=== PATIENT | male | born 1955 | race Hispanic/Latino ===

== ENCOUNTER 2018-10-12 14:16 | Observation (INO) | payer OTHER, MEDICARE ==
[~2018-10-12] VITALS: Ht 165.1 cm; Wt 95.7 kg
[~2018-10-12 14:16] MED LIST: ASPI-555 PO; BACL10TA PO; BIMA12.5OS OU; CLOP75TA14 PO; INSU100I21 SQ; LOSA25TA41 PO; METF-446 PO; METO-391 PO; NITR0.4T SL; PANT40TA25 PO; PIOG15TA66 PO; PRAV40TA3 PO
[2018-10-12 14:28] LABS: BASOPHILS % (AUTO) 0.5 % (0.0-5.0); EOSINOPHILS % (AUTO) 1.9 % (0.0-8.0); LYMPHOCYTES % (AUTO) 23.8 % (21.0-51.0); MEAN CORPUSCULAR HEMOGLOBIN 30.9 pg (27.0-33.0); MEAN CORPUSCULAR HGB CONC 33.4 g/dL (32.0-36.0); MEAN CORPUSCULAR VOLUME 92.4 fL (79-99); MONOCYTES % (AUTO) 10.6 % (3.0-13.0); NEUTROPHILS % (AUTO) 63.2 % (40.0-77.0); PLATELET COUNT (AUTO) 235 K/uL (130-400); RED BLOOD CELL COUNT(AUTO) 4.87 MIL/uL (4.50-6.20); RED CELL DISTRIBUTION WIDTH 13.6 % (11.0-15.5); WHITE BLOOD COUNT (AUTO) 7.9 K/uL (4.8-10.8)
[2018-10-12 14:42] LABS: INR 0.91 (0.85-1.15); PARTIAL THROMBOPLASTIN TIME 28.8 SEC (26.3-35.5); PROTHROMBIN TIME 9.6 SEC (9.6-11.6)
[2018-10-12 14:43] LABS: CREATININE 1.2 mg/dL (0.5-1.5); POTASSIUM 4.2 mmol/L (3.5-5.1)
[2018-10-12 14:54] LABS: ALBUMIN 3.2 g/dL (3.5-5.0); BILIRUBIN,TOTAL 0.4 mg/dL (0.2-1.0); TOTAL PROTEIN, SERUM 6.8 g/dL (6.0-8.3)
[2018-10-12 14:58] LABS: B-TYPE NATRIURETIC PEPTIDE 16 pg/mL (0-100)
[2018-10-12] MEDS ORDERED: ACETAMINOPHEN 325 MG TAB PO PRN ×2 (17:00)
[2018-10-12] MEDS ORDERED: ONDANSETRON HCL 4 MG/2 ML VIAL IV PRN (17:00)
[2018-10-12] MEDS ORDERED: MORPHINE SULFATE 2 MG/ML 1ML SYG IV PRN (17:00)
[2018-10-12] MEDS ORDERED: HYDRALAZINE HCL 20 MG/ML VIAL IV PRN (17:00)
[2018-10-12] MEDS ORDERED: DEXTROSE 50%-WATER 50 ML DISP.SYRIN IV PRN (18:45)
[2018-10-12] MEDS ORDERED: GLUCAGON 1MG KIT 1 MG ML IM PRN (18:45)
[2018-10-12 19:07] LABS: HEMOGLOBIN A1C 7.1 % (4.0-6.0)
[2018-10-12] MEDS: METOPROLOL TARTRATE 25 MG TAB PO SCH (21:00)
[2018-10-12] MEDS: ATORVASTATIN CALCIUM 40 MG TABLET PO SCH (21:00)
[2018-10-12] MEDS: FAMOTIDINE 20MG TAB 20 MG TAB PO SCH (21:00)
[2018-10-12] MEDS: INSULIN HUMULIN R 100 UNIT/ML 3ML SQ SCH (21:00)
[2018-10-12] MEDS ORDERED: FAMOTIDINE 20MG TAB 20 MG TAB ONE (21:17)
[2018-10-12] MEDS ORDERED: METOPROLOL TARTRATE 25 MG TAB ONE (21:18)
[2018-10-12] MEDS ORDERED: ATORVASTATIN CALCIUM 20 MG TABLET ONE (21:18)
[2018-10-13] VITALS (13 sets, daily range): BP systolic 101–144; BP diastolic 68–90
[2018-10-13 01:34] LABS: CREATINE KINASE, TOTAL 96 U/L (21-232); MYOGLOBIN 45 ng/mL (10-92); TROPONIN I < 0.04 ng/mL (0.00-0.06)
[2018-10-13] MEDS: INSULIN HUMULIN R 100 UNIT/ML 3ML SQ SCH ×6 (07:30→21:00)
[2018-10-13] MEDS ORDERED: NITROGLYCERIN 5 MG/ML 10 ML VIAL IV ONE (07:51)
[2018-10-13] MEDS ORDERED: HEPARIN SODIUM 1000UNIT/ML 10ML VIAL ONE (07:51)
[2018-10-13] MEDS ORDERED: LIDOCAINE HCL 2% 20ML ONE (07:52)
[2018-10-13] MEDS ORDERED: IOHEXOL 350 MG/ML 100ML INFUS..BTL IV ONE (07:52)
[2018-10-13] MEDS ORDERED: IOHEXOL-350 50ML VIAL IV ONE (07:52)
[2018-10-13] MEDS ORDERED: SODIUM BICARB 50MEQ 50ML VIAL ONE (08:02)
[2018-10-13] MEDS ORDERED: MEPERIDINE-PF 25 MG/ML SYG ONE (08:11)
[2018-10-13] MEDS ORDERED: MIDAZOLAM HCL 1 MG/ML 2ML VIAL ONE (08:11)
[2018-10-13] MEDS ORDERED: SODIUM CHLORIDE 0.9% 1000ML 1,000 ML IV SCH (08:55)
[2018-10-13] MEDS: ENOXAPARIN SODIUM 40 MG/0.4 ML SYRINGE SQ SCH (09:00)
[2018-10-13] MEDS: FAMOTIDINE 20MG TAB 20 MG TAB PO SCH ×2 (09:00→21:06)
[2018-10-13] MEDS ORDERED: DEXTROSE 50%-WATER 50 ML DISP.SYRIN IV PRN (09:00)
[2018-10-13] MEDS: METOPROLOL TARTRATE 25 MG TAB PO SCH ×2 (09:00→21:06)
[2018-10-13] MEDS ORDERED: ACETAMINOPHEN-CODEINE 300/30MG TAB PO PRN ×2 (09:00)
[2018-10-13] MEDS ORDERED: ASPIRIN 325 MG TABLET PO SCH (09:00)
[2018-10-13] MEDS ORDERED: GLUCAGON 1MG KIT 1 MG ML IM PRN (09:00)
--- NOTE | 2018-10-13 09:20 | NUR ---
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 PERSONAL BELONGINGS WITH CLOTHING AT BEDSIDE, NO FAMILY AT BEDSIDE UPON ARRIVAL.
--- NOTE | 2018-10-13 14:27 | NUR ---
NURSING: REPORT GIVEN TO YANI DICKERSON/ [id number].
--- NOTE | 2018-10-13 15:00 | NUR ---
ARRIVAL TO ROOM 201 PT IS AAOX4 DENIES CP DENIES SOB DENIES NV NO COMPLAINTS, RIGHT GROIN MYNX CLOSURE DRESSING CLEAN DRY AND INTACT NO OOZING NO HEMATOMA. BEDREST IS COMPLETED PRIOR TO COMING UP TO ROOM 201. FRIEND IS AT BEDSIDE, CALL LIGHT WITHIN REACH.
--- NOTE | 2018-10-13 15:50 | NUR ---
DR ADRIAN MADE AWARE OF PT ARRIVAL TO FLOOR
[2018-10-13] MEDS ORDERED: NITROGLYCERIN 0.4 MG SL TAB SL SCH (17:00)
--- NOTE | 2018-10-13 17:13 | NUR ---
VIKTORIA BORDEN AUDIT INTERN ROUNDED SAW PATIENT ORDERS RECEIVED
[2018-10-13] MEDS ORDERED: BACLOFEN 10 MG TABLET PO PRN (17:45)
[2018-10-13] MEDS ORDERED: PHARMACY COMMUNICATION MISC SCH (17:45)
[2018-10-13] MEDS ORDERED: SIMVASTATIN 20 MG TABLET PO SCH (21:00)
[2018-10-13] MEDS ORDERED: Bimatoprost (Lumigan 0.01% Ophth Soln) 1 DROP OU SCH (21:00)
[2018-10-13] MEDS ORDERED: CLOPIDOGREL BISULFATE 75 MG TAB PO SCH (21:00)
[2018-10-13] MEDS ORDERED: Metoprolol Succinate 50 MG PO SCH (21:00)
--- NOTE | 2018-10-13 21:00 | NUR ---
PT ASSESSMENT- NO DISTRESS NOTED. IN BED, VERIFIED RIGHT GROIN SITE. SOFT AND NON TENDER. ROOM AIR. STABLE. BM 10/13. ABLE TO AMBULATE.
--- NOTE | 2018-10-13 21:03 | NUR ---
D/C PLAN CM spoke to pt regarding d/c planning. states he is [place] and lives with dtr. States dtr works but has assistance when not working. Also states girlfriend can assist if needed. plan to home. No needs verbalized or identified. CM to f/u Addendum: 10/13/18 at 2104 by TEAGAN HENDRIX CM Amended: Links added.
[2018-10-13] MEDS: ATORVASTATIN CALCIUM 40 MG TABLET PO SCH (21:06)
[2018-10-13] MEDS: RANOLAZINE 500 MG TAB.SR.12H PO SCH (21:06)
[2018-10-14 03:54] LABS: BASOPHILS % (AUTO) 0.2 % (0.0-5.0); EOSINOPHILS % (AUTO) 2.2 % (0.0-8.0); HEMATOCRIT 45.4 % (42-54); LYMPHOCYTES % (AUTO) 20.9 % (21.0-51.0); MEAN CORPUSCULAR HEMOGLOBIN 31.1 pg (27.0-33.0); MEAN CORPUSCULAR HGB CONC 34.1 g/dL (32.0-36.0); MONOCYTES % (AUTO) 8.2 % (3.0-13.0); NEUTROPHILS % (AUTO) 68.5 % (40.0-77.0); NUCLEATED RED BLOOD CELLS 0.1 % (0.0-0.19); PLATELET COUNT (AUTO) 230 K/uL (130-400); RED BLOOD CELL COUNT(AUTO) 4.99 MIL/uL (4.50-6.20); RED CELL DISTRIBUTION WIDTH 13.8 % (11.0-15.5); WHITE BLOOD COUNT (AUTO) 9.7 K/uL (4.8-10.8)
[2018-10-14 04:08] LABS: CREATININE 1.1 mg/dL (0.5-1.5); POTASSIUM 4.1 mmol/L (3.5-5.1)
[2018-10-14 04:34] VITALS: BP 118/78
[2018-10-14] MEDS: INSULIN HUMULIN R 100 UNIT/ML 3ML SQ SCH (06:41)
[2018-10-14 07:00] VITALS: BP 137/86
[2018-10-14] MEDS ORDERED: INSULIN LISPRO 100 UNIT/ML 3ML SQ SCH (07:30)
--- NOTE | 2018-10-14 07:40 | NUR ---
ASSESSMENT ENCOUNTERED PT A&OX3, CALM COOPERATIVE AND DOES NOT APPEAR TO BE IN ANY DISTRESS NOR ANY NEURO DEFICITS PRESENT. PT DENIES PAIN, SOB, NAUSEA. RT GROIN SOFT NONTENDER WITH NO OOZING OR HEMATOMA PRESENT. DP/PT PULSES PALPABLE. PT IS AMBULATORY, GAIT STEADY AND STRONG WITH STAND BY ASSIST. CALL LIGHT WITHIN REACH, FAMILY AT BEDSIDE.
[2018-10-14] MEDS ORDERED: INSULIN GLARGINE 100 UNITS/ML 10 ML VIAL SQ SCH ×2 (08:00)
[2018-10-14] MEDS: RANOLAZINE 500 MG TAB.SR.12H PO SCH (08:52)
[2018-10-14] MEDS: METOPROLOL TARTRATE 25 MG TAB PO SCH (08:52)
[2018-10-14] MEDS: ENOXAPARIN SODIUM 40 MG/0.4 ML SYRINGE SQ SCH (08:53)
[2018-10-14] MEDS ORDERED: PANTOPRAZOLE SODIUM 40 MG TABLET.DR PO SCH (09:00)
[2018-10-14] MEDS ORDERED: LOSARTAN 50 MG TABLET PO SCH (09:00)
[2018-10-14] MEDS ORDERED: PIOGLITAZONE HCL 15 MG TAB PO SCH (09:00)
[2018-10-14] MEDS ORDERED: ASPIRIN 81MG TAB.CHEW PO SCH (09:00)
--- NOTE | 2018-10-14 09:45 | NUR ---
DR GOLDMAN AT BEDSIDE UPDATE GIVEN, ORDERS RECEIVED.
--- NOTE | 2018-10-14 10:30 | NUR ---
JUNG WILKS PA-C AT BEDSIDE UPDATE GIVEN, NO ORDERS RECEIVED.
[2018-10-14 11:00] VITALS: BP 121/87
[2018-10-14] MEDS ORDERED: ATOR40TA69 PO (11:12)
[2018-10-14] MEDS ORDERED: RANO500T2 PO (11:12)
--- NOTE | 2018-10-14 11:45 | NUR ---
DR ADRIAN AT BEDSIDE UPDATE GIVEN, ORDERS RECEIVED
--- NOTE | 2018-10-14 13:00 | NUR ---
DISCHARGE INSTRUCTIONS GIVEN, PIV REMOVED AND INTACT, DISCHARGED HOME TO FAMILY VEHICLE VIA WHEELCHAIR.
== END 2018-10-14 13:15 | disposition home or self-care (01) ==
LOC: EDH 14:16 → INTOOBSV 16:51 → EDHIP 16:51 → 2AH 10-13 14:27
PROVIDERS: ADMIT Internal Medicine; ATTEND Internal Medicine
DX: I25.110 Atherosclerotic heart disease of native coronary artery with unstable angina pectoris (principal); E11.9 Type 2 diabetes mellitus without complications; E78.5 Hyperlipidemia, unspecified; I10 Essential (primary) hypertension; Z98.41 Cataract extraction status, right eye; Z98.42 Cataract extraction status, left eye; Z79.899 Other long term (current) drug therapy; E66.9 Obesity, unspecified; Z86.73 Personal history of transient ischemic attack (TIA), and cerebral infarction without residual deficits; Z95.5 Presence of coronary angioplasty implant and graft; Z82.49 Family history of ischemic heart disease and other diseases of the circulatory system; Z79.01 Long term (current) use of anticoagulants
CPT/HCPCS: 36415 ×4; 71045 ×2; 80048 ×2; 80053; 81001; 82550 ×2; 82948 ×4; 83735; 83036; 83874 ×2; 83880; 84484 ×2; 85025 ×3; 85610 ×2; 85730 ×2; 93005 ×4; 93306; 93458; 93880; 94010; 96372 ×2; 99284; C1760; C1894; G0378 ×44; J1644; J1650; J1815; J2175; J2250; J3490 ×3; Q9965; Q9967 ×2; 99156; 99157

== ENCOUNTER → 2020-09-06 | Outpatient (CLI) | payer OTHER, MEDICARE ==
[~2020-09-06] MED LIST changes: -ASPI-555 PO; +ASPI-556 PO; +ATOR40TA69 PO; -PANT40TA25 PO; +PANT40TA54 PO; -PRAV40TA3 PO; +RANO500T2 PO
== END | disposition home or self-care (01) ==
LOC: RAH 11:58
PROVIDERS: ATTEND Internal Medicine Cardiovascular Disease
DX: R91.8 Other nonspecific abnormal finding of lung field (principal); M51.36 Other intervertebral disc degeneration, lumbar region; Z95.1 Presence of aortocoronary bypass graft
CPT/HCPCS: 71046

== ENCOUNTER → 2020-09-13 | Outpatient (CLI) | payer OTHER, MEDICARE | END | disposition home or self-care (01) | LOC: RAH 12:08 | PROVIDERS: ATTEND Internal Medicine Cardiovascular Disease | DX: I25.10 Atherosclerotic heart disease of native coronary artery without angina pectoris (principal); J44.9 Chronic obstructive pulmonary disease, unspecified | CPT/HCPCS: 71250 ==

== ENCOUNTER → 2021-06-19 | Outpatient (CLI) | payer OTHER, MEDICARE ==
[~2021-06-19] VITALS: Ht 165.1 cm; Wt 93.4 kg
[~2021-06-19] MED LIST changes: +REGADENOSON 0.4 MG/5 ML PF SYG IVP SCH
== END | disposition home or self-care (01) ==
LOC: SHCH 07:33
PROVIDERS: ATTEND Internal Medicine Cardiovascular Disease
DX: R07.9 Chest pain, unspecified (principal); Z95.1 Presence of aortocoronary bypass graft
CPT/HCPCS: 78452; 93017; 96374; A9500 ×2; J2785

== ENCOUNTER 2021-07-12 08:00 | Day surgery (SDC) | payer OTHER, MEDICARE ==
[2021-07-10 10:49] LABS: BASOPHILS % (AUTO) 0.6 % (0.0-5.0); EOSINOPHILS % (AUTO) 2.9 % (0.0-8.0); HEMATOCRIT 42.6 % (42-54); MEAN CORPUSCULAR HEMOGLOBIN 24.8 pg (27.0-33.0); MEAN CORPUSCULAR HGB CONC 30.5 g/dL (32.0-36.0); MEAN CORPUSCULAR VOLUME 81.3 fL (79-99); MONOCYTES % (AUTO) 9.4 % (3.0-13.0); NEUTROPHILS % (AUTO) 61.6 % (40.0-77.0); PLATELET COUNT (AUTO) 235 K/uL (130-400); RED BLOOD CELL COUNT(AUTO) 5.24 MIL/uL (4.50-6.20); RED CELL DISTRIBUTION WIDTH 21.1 % (11.0-15.5); WHITE BLOOD COUNT (AUTO) 8.9 K/uL (4.8-10.8)
[2021-07-10 11:01] LABS: CREATININE 1.2 mg/dL (0.5-1.5); POTASSIUM 4.8 mmol/L (3.5-5.1)
[2021-07-10 11:04] LABS: INR 0.99 (0.85-1.15); PROTHROMBIN TIME 10.8 SEC (9.6-11.6)
[2021-07-10 11:06] LABS: PARTIAL THROMBOPLASTIN TIME 27.6 SEC (26.3-35.5)
[2021-07-10 11:10] LABS: APPEARANCE,URINE Clear (CLEAR); BILIRUBIN,URINE Negative (NEGATIVE); COLOR,URINE Yellow (YELLOW); GLUCOSE, URINE (UA) >=1000 mg/dL (NEGATIVE); KETONES,URINE Negative (NEGATIVE); LEUKOCYTE ESTERASE ,URINE Negative (NEGATIVE); NITRATE,URINE Negative (NEGATIVE); OCCULT BLOOD,URINE Negative (NEGATIVE); PH,URINE 6.5 (5.0-8.0); PROTEIN,URINE Negative (NEGATIVE)
[2021-07-10 11:21] LABS: BACTERIA,URINE None Seen /HPF (None Seen); RBC,URINE 0-1 /HPF (0-1); SQUAMOUS EPITHELIAL CELL,UR 0-2 /HPF (0-2); WBC,URINE 0-1 /HPF (0-1)
[2021-07-11 14:18] VITALS: BP 134/63
[2021-07-12] VITALS (12 sets, daily range): BP systolic 126–167; BP diastolic 47–81
[~2021-07-12] VITALS: Ht 165.1 cm; Wt 92.4 kg
[~2021-07-12 08:00] MED LIST changes: +METO50TA18 PO; +MONT-39 PO; -REGADENOSON 0.4 MG/5 ML PF SYG IVP SCH; +ROSU20TA31 PO
[2021-07-12] MEDS ORDERED: 0.9%NACL 1000ML 1,000 ML IV ONE (09:07)
[2021-07-12] MEDS ORDERED: HEPARIN 10,000 UNIT/10ML (1,000 UNIT/ML) VIAL ONE (11:25)
[2021-07-12] MEDS ORDERED: NITROGLYCERIN 50MG VIAL IV ONE (11:25)
[2021-07-12] MEDS ORDERED: IOHEXOL-350 50ML VIAL IV ONE (11:25)
[2021-07-12] MEDS ORDERED: BIVALIRUDIN 250 MG/VIAL IV ONE (11:25)
[2021-07-12] MEDS ORDERED: NICARDIPINE 25MG INJ IV ONE (11:25)
[2021-07-12] MEDS ORDERED: IOHEXOL 350 MG/ML 100ML INFUS..BTL IV ONE (11:26)
[2021-07-12] MEDS ORDERED: LIDOCAINE HCL 400MG/20ML VIAL ONE (11:26)
[2021-07-12] MEDS ORDERED: SODIUM BICARB 50MEQ 50ML VIAL 50 ML ONE (11:26)
[2021-07-12] MEDS ORDERED: FENTANYL CITRATE PF 50 MCG/1 ML 2ML VIAL ONE ×2 (12:11→12:29)
[2021-07-12] MEDS ORDERED: 0.9%NACL 1000ML 1,000 ML IV SCH (13:00)
== END 2021-07-12 17:00 | disposition home or self-care (01) ==
LOC: DAH 08:00
PROVIDERS: ATTEND Internal Medicine Cardiovascular Disease
DX: I25.119 Atherosclerotic heart disease of native coronary artery with unspecified angina pectoris (principal); I25.82 Chronic total occlusion of coronary artery; I25.719 Atherosclerosis of autologous vein coronary artery bypass graft(s) with unspecified angina pectoris; I11.0 Hypertensive heart disease with heart failure; I50.22 Chronic systolic (congestive) heart failure; E78.00 Pure hypercholesterolemia, unspecified; E11.9 Type 2 diabetes mellitus without complications; G47.33 Obstructive sleep apnea (adult) (pediatric); D64.9 Anemia, unspecified; E66.9 Obesity, unspecified; M81.0 Age-related osteoporosis without current pathological fracture; Z79.84 Long term (current) use of oral hypoglycemic drugs; Z79.01 Long term (current) use of anticoagulants; Z68.34 Body mass index [BMI] 34.0-34.9, adult; Z98.890 Other specified postprocedural states; Z95.5 Presence of coronary angioplasty implant and graft; Z86.73 Personal history of transient ischemic attack (TIA), and cerebral infarction without residual deficits; Z82.49 Family history of ischemic heart disease and other diseases of the circulatory system; Z98.49 Cataract extraction status, unspecified eye
CPT/HCPCS: 36415; 71045; 80048; 81001; 82948 ×2; 85025; 85610; 85730; 93005; 93459; A4215; A4216; A4221; A4222; A4223 ×3; A4606; A4663; C1760; C1769; C1894; J1644; J3010 ×2; J3490 ×3; J7030; Q9965 ×2; Q9967 ×2; 96361; 96372; 99156; 99157; J0583

== ENCOUNTER 2022-04-23 07:32 | Day surgery (SDC) | payer OTHER, MEDICARE ==
[2022-04-18 12:34] LABS: BASOPHILS % (AUTO) 0.3 % (0.0-5.0); EOSINOPHILS % (AUTO) 0.7 % (0.0-8.0); HEMATOCRIT 42.5 % (42-54); LYMPHOCYTES % (AUTO) 23.8 % (21.0-51.0); MEAN CORPUSCULAR HEMOGLOBIN 31.9 pg (27.0-33.0); MEAN CORPUSCULAR HGB CONC 33.9 g/dL (32.0-36.0); MEAN CORPUSCULAR VOLUME 94.2 fL (79-99); NEUTROPHILS % (AUTO) 65.8 % (40.0-77.0); PLATELET COUNT (AUTO) 228 K/uL (130-400); RED BLOOD CELL COUNT(AUTO) 4.51 MIL/uL (4.50-6.20); RED CELL DISTRIBUTION WIDTH 14.5 % (11.0-15.5)
[2022-04-18 12:44] LABS: CREATININE 1.2 mg/dL (0.5-1.5); POTASSIUM 4.4 mmol/L (3.5-5.1)
[2022-04-18 12:47] LABS: PROTHROMBIN TIME 10.9 SEC (9.6-11.6)
[2022-04-18 12:49] LABS: APPEARANCE,URINE CLEAR (CLEAR); BILIRUBIN,URINE NEGATIVE (NEGATIVE); COLOR,URINE YELLOW (YELLOW); GLUCOSE, URINE (UA) NEGATIVE (NEGATIVE); KETONES,URINE NEGATIVE (NEGATIVE); LEUKOCYTE ESTERASE ,URINE NEGATIVE (NEGATIVE); NITRATE,URINE NEGATIVE (NEGATIVE); OCCULT BLOOD,URINE NEGATIVE (NEGATIVE); PARTIAL THROMBOPLASTIN TIME 27.6 SEC (26.3-35.5); PH,URINE 5.5 (5.0-8.0); PROTEIN,URINE TRACE mg/dL (NEGATIVE)
[2022-04-18 13:11] LABS: BACTERIA,URINE Rare /HPF (None Seen); MUCUS,URINE Moderate LPF (None Seen); RBC,URINE 0-1 /HPF (0-1); SQUAMOUS EPITHELIAL CELL,UR 0-2 /HPF (0-2); WBC,URINE 0-1 /HPF (0-1)
[2022-04-18 13:20] LABS: B-TYPE NATRIURETIC PEPTIDE 77 pg/mL (0-100)
[2022-04-22 11:44] VITALS: BP 131/72
[~2022-04-23] VITALS: Ht 165.1 cm; Wt 91.2 kg
[~2022-04-23 07:32] MED LIST changes: +AEC81 PO; -ASPI-556 PO; -ATOR40TA69 PO; -BACL10TA PO; -BIMA12.5OS OU; +FISH1CAP27 PO; +ISOS30TA92 PO; -LOSA25TA41 PO; -METO-391 PO; +MULT-1289 PO; +NAPR-1196 PO; -NITR0.4T SL; +NITR0.4T50 SL; +OLME20TA22 PO; -PIOG15TA66 PO; +RANO10003 PO; -RANO500T2 PO; -ROSU20TA31 PO; +ROSU40TA21 PO
[2022-04-23 08:30] VITALS: BP 117/69
[2022-04-23 09:00] VITALS: BP 117/69
[2022-04-23] MEDS ORDERED: 0.9%NACL 1000ML 1,000 ML IV ONE (09:21)
[2022-04-23] MEDS ORDERED: LIDOCAINE HCL 1% 20 ML VIAL ONE (13:11)
[2022-04-23] MEDS ORDERED: IOHEXOL 350 MG/ML 100ML INFUS..BTL IV ONE (13:11)
[2022-04-23] MEDS ORDERED: HEPARIN 10,000 UNIT/10ML (1,000 UNIT/ML) VIAL ONE (13:11)
[2022-04-23] MEDS ORDERED: MIDAZOLAM HCL 1 MG/ML 2ML VIAL ONE (13:13)
[2022-04-23] MEDS ORDERED: FENTANYL CITRATE PF 50 MCG/1 ML 2ML VIAL ONE (13:13)
[2022-04-23] MEDS ORDERED: CLOPIDOGREL 300MG TAB ONE (15:15)
[2022-04-23] MEDS ORDERED: ACETAMINOPHEN WITH CODEINE 1 TAB TAB PO PRN (15:30)
[2022-04-23] MEDS ORDERED: 0.9%NACL 1000ML 1,000 ML IV SCH (15:30)
[2022-04-23 15:45] VITALS: BP 132/69
[2022-04-23 17:00] VITALS: BP 138/83
[2022-04-23 20:31] VITALS: BP 148/86
== END 2022-04-23 20:15 | disposition home or self-care (01) ==
LOC: DAH 07:32
PROVIDERS: ATTEND Internal Medicine Cardiovascular Disease
DX: I25.118 Atherosclerotic heart disease of native coronary artery with other forms of angina pectoris (principal); I10 Essential (primary) hypertension; E11.9 Type 2 diabetes mellitus without complications; M81.0 Age-related osteoporosis without current pathological fracture; G47.33 Obstructive sleep apnea (adult) (pediatric); E66.9 Obesity, unspecified; Z79.84 Long term (current) use of oral hypoglycemic drugs; Z79.82 Long term (current) use of aspirin; Z79.01 Long term (current) use of anticoagulants; Z79.899 Other long term (current) drug therapy; Z98.890 Other specified postprocedural states; Z68.33 Body mass index [BMI] 33.0-33.9, adult; Z95.5 Presence of coronary angioplasty implant and graft; Z82.49 Family history of ischemic heart disease and other diseases of the circulatory system; Z98.49 Cataract extraction status, unspecified eye
CPT/HCPCS: 80048; 83880; 85025; 85610; 85730; 81001; 36415; 71045; 93005; 82948; 93454; C9600; C1769 ×5; C1894 ×2; C1887 ×3; C1760 ×3; C1874 ×2; C1725 ×5; J3010; J7030; J1644 ×3; J2250; Q9967; A4215; A4222; A4221; A4663; A4216; A4606; Q9965 ×2; A4223 ×3; 99156; 99157